=== PATIENT | male | born 1945 | race Hispanic/Latino ===

== ENCOUNTER 2023-05-30 13:24 | Emergency (ER) | payer OTHER ==
[~2023-05-30] VITALS: Ht 172.7 cm; Wt 77.1 kg
[2023-05-30 13:40] VITALS: O2SAT 99
[2023-05-30] MEDS ORDERED: CEFTRIAXONE 1 GM VIAL IV STA (14:02)
[2023-05-30] MEDS ORDERED: SODIUM CHLORIDE 0.9% 1000ML 1,000 ML IV ONE (14:15)
[2023-05-30 14:19] LABS: BASOPHILS % 0.4 % (0.0-1.0); EOSINOPHILS % 2.6 % (0.0-6.0); HEMATOCRIT 37.2 % (38.2-49.6); HEMOGLOBIN 12.2 g/dL (14.0-18.0); LYMPHOCYTES # (AUTO) 0.8 (1.0-3.2); LYMPHOCYTES % 11.3 % (18.0-39.1); MEAN CORPUSCULAR HEMOGLOBIN 30.1 pg (28-32); MEAN CORPUSCULAR HGB CONC 32.8 g/dL (31-35); MEAN CORPUSCULAR VOLUME 91.9 fL (81-99); MONOCYTES # (AUTO) 0.6 (0.2-0.8); MONOCYTES % 8.2 % (4.4-11.3); NEUTROPHILS # (AUTO) 5.3 (2.1-6.9); NEUTROPHILS % 77.2 % (38.7-80.0); PLATELET COUNT 270 x10e3/uL (140-360); RED BLOOD COUNT 4.05 x10e6/uL (4.3-5.7); RED CELL DISTRIBUTION WIDTH 12.6 % (11.7-14.4); WHITE BLOOD COUNT 6.81 x10e3/uL (4.8-10.8)
[2023-05-30 14:20] LABS: EOSINOPHILS # (AUTO) 0.2 (0.0-0.4)
[2023-05-30 14:32] LABS: INR 0.99; PROTHROMBIN TIME 13.3 seconds (11.9-14.5)
[2023-05-30 14:33] LABS: PARTIAL THROMBOPLASTIN TIME 32.1 seconds (23.8-35.5)
[2023-05-30 14:39] LABS: ALBUMIN 3.8 g/dL (3.5-5.0); ALBUMIN/GLOBULIN RATIO 1.1 (0.8-2.0); ANION GAP 13.8 mmol/L (8-16); BILIRUBIN,TOTAL 0.8 mg/dL (0.2-1.2); CALCIUM 10.4 mg/dL (8.4-10.2); CREATININE, SERUM 1.32 mg/dL (0.72-1.25); POTASSIUM 3.8 mmol/L (3.5-5.1); TOTAL PROTEIN 7.4 g/dL (6.5-8.1)
[2023-05-30 16:16] LABS: CLARITY,URINE SL CLOUDY (CLEAR); COLOR,URINE YELLOW (YELLOW); GLUCOSE, URINE NEGATIVE (NEGATIVE); KETONES,URINE NEGATIVE (NEGATIVE); LEUKOCYTE ESTERASE ,URINE TRACE (NEGATIVE); NITRITE,URINE NEGATIVE (NEGATIVE); PH,URINE 6 (5 - 7); PROTEIN,URINE DIPSTICK 1+ (NEGATIVE)
[2023-05-30 16:17] LABS: BILIRUBIN,URINE NEGATIVE (NEGATIVE); URINE UROBILINOGEN 0.2 mg/dL (0.2 - 1)
[2023-05-30 16:26] LABS: BACTERIA,URINE FEW /HPF; MUCUS,URINE FEW (RARE)
== END 2023-05-30 16:49 | disposition home or self-care (01) ==
LOC: ER 14:01
DX: R68.83 Chills (without fever) (principal); N39.0 Urinary tract infection, site not specified; I10 Essential (primary) hypertension; I25.10 Atherosclerotic heart disease of native coronary artery without angina pectoris
CPT/HCPCS: 36415; 71045; 80053; 81001; 83605; 85025; 85610; 85730; 87040; 87086; 99284; J0696; J7030

== ENCOUNTER 2024-03-14 12:42 | Emergency (ER) | payer OTHER ==
[~2024-03-14] VITALS: Ht 172.7 cm; Wt 77.1 kg
[2024-03-14 13:42] LABS: BASOPHILS # (AUTO) 0.1 (0.0-0.1); BASOPHILS % 0.3 % (0.0-1.0); HEMATOCRIT 40.9 % (38.2-49.6); HEMOGLOBIN 12.8 g/dL (14.0-18.0); LYMPHOCYTES # (AUTO) 1.7 (1.0-3.2); LYMPHOCYTES % 6.3 % (18.0-39.1); MEAN CORPUSCULAR HEMOGLOBIN 30.5 pg (28-32); MEAN CORPUSCULAR HGB CONC 31.3 g/dL (31-35); MEAN CORPUSCULAR VOLUME 97.6 fL (81-99); MONOCYTES # (AUTO) 1.9 (0.2-0.8); MONOCYTES % 6.9 % (4.4-11.3); NEUTROPHILS # (AUTO) 23.6 (2.1-6.9); NEUTROPHILS % 85.6 % (38.7-80.0); PLATELET COUNT 279 x10e3/uL (140-360); RED BLOOD COUNT 4.19 x10e6/uL (4.3-5.7); WHITE BLOOD COUNT 27.52 x10e3/uL (4.8-10.8)
[2024-03-14 13:51] LABS: BILIRUBIN,URINE NEGATIVE (NEGATIVE); CLARITY,URINE CLEAR (CLEAR); COLOR,URINE YELLOW (YELLOW); GLUCOSE, URINE NEGATIVE (NEGATIVE); KETONES,URINE NEGATIVE (NEGATIVE); LEUKOCYTE ESTERASE ,URINE SMALL (NEGATIVE); NITRITE,URINE NEGATIVE (NEGATIVE); PH,URINE 7 (5 - 7); PROTEIN,URINE DIPSTICK NEGATIVE (NEGATIVE); URINE UROBILINOGEN 1 mg/dL (0.2 - 1)
[2024-03-14] MEDS: SODIUM CHLORIDE 0.9% 1000ML 1,000 ML IV SCH (13:52)
[2024-03-14] MEDS: ACETAMINOPHEN 325 MG TAB PO ONE (13:53)
[2024-03-14] MEDS: KETOROLAC TROMETHAMINE 30 MG/ML VIAL IV STA (13:53)
[2024-03-14 13:58] LABS: ALBUMIN 4.3 g/dL (3.5-5.0); ALBUMIN/GLOBULIN RATIO 1.2 (0.8-2.0); ANION GAP 15.7 mmol/L (8-16); CALCIUM 10.4 mg/dL (8.4-10.2); CREATININE, SERUM 1.57 mg/dL (0.72-1.25); POTASSIUM 3.7 mmol/L (3.5-5.1)
[2024-03-14 14:14] LABS: BACTERIA,URINE MANY /HPF; EPITHELIAL CELLS,URINE FEW /LPF; RENAL EPITHELIAL CELLS,URINE FEW; TRANSITIONAL EPI CELLS,URINE FEW; WBC,URINE (MAN) >50 /HPF (0-5)
[2024-03-14] MEDS ORDERED: CEFDINIR300 MG PO (14:27)
[2024-03-14 15:09] VITALS: PULSE 92; RESP 16; TEMP 99.6; O2SAT 100
[2024-03-14 15:20] VITALS: TEMP 99.6
[2024-03-14 15:27] LABS: BAND NEUTROPHILS % (MANUAL) 6 %; LYMPHOCYTES % (MANUAL) 8 % (19-48); MONOCYTES % (MANUAL) 8 % (3.4-9.0); NEUTROPHILS % (MANUAL) 78 % (40-74); PLATELET ESTIMATE ADEQUATE; PLATELET MORPHOLOGY COMMENT NORMAL; RBC MORPHOLOGY COMMENT NORMAL
== END 2024-03-14 15:33 | disposition home or self-care (01) ==
LOC: ER 12:51
DX: R50.9 Fever, unspecified (principal); N39.0 Urinary tract infection, site not specified; R30.0 Dysuria; I10 Essential (primary) hypertension; I25.10 Atherosclerotic heart disease of native coronary artery without angina pectoris; Z95.1 Presence of aortocoronary bypass graft
CPT/HCPCS: 36415; 74176; 80053; 81001; 85025; 87086; 87186; 99284; J0696; J1885; J7030

== ENCOUNTER 2024-09-03 12:28 | Emergency (ER) | payer MEDICARE, OTHER ==
[~2024-09-03] VITALS: Ht 172.7 cm; Wt 74.8 kg
[~2024-09-03 12:28] MED LIST: CEFDINIR300 MG PO
[2024-09-03 12:35] VITALS: PULSE 87; RESP 14; TEMP 97.5; O2SAT 96
[2024-09-03] MEDS ORDERED: ULTRAM 50MG50 MG PO (14:00)
== END 2024-09-03 14:51 | disposition home or self-care (01) ==
LOC: ER 13:06
DX: M25.511 Pain in right shoulder (principal); I10 Essential (primary) hypertension; I25.10 Atherosclerotic heart disease of native coronary artery without angina pectoris; Z95.1 Presence of aortocoronary bypass graft
CPT/HCPCS: 99283